=== PATIENT | female | born 1950 | race Caucasian/White ===

== ENCOUNTER → 2020-01-27 09:55 | Outpatient (CLI) | payer OTHER, SELFPAY ==
[2020-01-27 12:52] LABS: Coronavirus 19 IgG Antibody Negative (Negative); Coronavirus 19 IgM Antibody Negative (Negative)
== END ==
PROVIDERS: Visit Provider Internal Medicine Gastroenterology
DX: Z01.818 Encounter for other preprocedural examination (principal); Z13.810 Encounter for screening for upper gastrointestinal disorder
CPT/HCPCS: 36415; 86328

== ENCOUNTER 2020-01-29 08:54 | Day surgery (SDC) | payer OTHER, SELFPAY ==
[2020-01-23 14:33] VITALS: BMI 19.2
[2020-01-29] VITALS (7 sets, daily range): BP systolic 97–121; BP diastolic 53–72; PULSE 65–69; RESP 18; TEMP 36.4–36.6; O2SAT 96–99
--- NOTE | 2020-01-29 10:05 | HMH.ANESCL ---
[facility] [place] Anesthesia Checklist - Patient Identification Patient Identification: Arm Band, Verbal (Name & ) - Structural Data Admitted From: Home Planned Operative Procedure/s: EGD Consent for Planned Operative Procedure(s) Verified: Yes Verified Documents: Surgical Consent, History and Physical - NPO Status Verified Time NPO: 00:00 - Chart Verification Results Verified: None - Additional verifications Anesthesia Reactions: No - Airway Assessment C-Spine Mobility Assessed: Yes TMJ Mobility Assessed: Yes Dentition: Good Dentition - Neurological Assessment Level of Consciousness: Awake, Alert, Appropriate, Follows Commands Hx Seizures: No Numbness or tingling in extremities: No - Anesthesia Plan Anesthesia Risk discussed: Yes Anesthesia Plan: Verified ASA Class: II Anesthesia Type: MAC [facility] [place] History I have reviewed the patient's past medical history: Yes Medical History: Reports:: Anxiety, Depression, Gastroesophageal Reflux Disease(GERD), Valvular Heart Disease (MVP) Denies:: Cancer, Diabetes Mellitus Type 1, Diabetes Mellitus Type 2, Internal Pacemaker, MRSA *Have you ever received a pneumonia vaccine?: Yes *Have you received a flu vaccine this season?: Yes Other Medical History: Reports: Anemia Anesthesia experience/problems:: None Laterality Cases: Left: Arthroscopy Knee Other Surgeries: No: Pacemaker Amputation: No Fractures: No - *Social History Alcohol Intake: never Alcohol Intake Frequency:: 0-2 drinks per day Substance Use Type: denies use *Occupational Status:: retired Housing: house *Travel in the last 8 weeks: None Family Hx:: No significant family history
--- NOTE | 2020-01-29 10:31 | P.PCN_ITS ---
[facility] Procedure Note Procedure Note:: Upper Endoscopy Procedure Report: Esophagogastroduodenoscopy with cold biopsies and TTS balloon dilation Endoscopost: Walt Abreu II, MD Referring Physician: Octavio David MD Date of Procedure: January 29, 2020 Equipment: Olympus GIF 180 standard upper endoscope Sedation: MAC sedation Indications: Mrs. Razo is a 69-year-old female with chronic GERD. She was on Protonix since 2006 and had an upper endoscopy in [place]. At that time she was on twice daily dosing but eventually weaned down to once daily. More recently, she has had increased heartburn/pyrosis into her throat and has increased Protonix to twice daily once again. She still is having symptoms with globus sensation, frequent clearance of the throat and some hard swallowing. She reports burning in the mid upper retrosternal region. She has had no significant belching or bloating. She does get some nausea and early satiety. She has lost 30 pounds in the last 2 years and has reduced appetite. She has some dysphagia. She also reports some anxiety that may be playing some role. She has chronic constipation. She has been taking combined MiraLAX plus Metamucil daily. Procedure: Prior to the procedure, a history and physical exam was performed, and patient's medications and allergies were reviewed. The risks, benefits and alternatives of the sedation and procedure were discussed with the patient. All questions were answered and informed consent was obtained. The patient was brought to the procedure room. Patient identification and proposed procedure were verified by the physician and the nurse. The patient was placed in a left lateral decubitus position and the scope was passed under direct vision. Throughout the procedure, the patient's blood pressure, pulse, and oxygen saturations were monitored continuously. The upper GI endoscopy was accomplished without difficulty. The patient tolerated the procedure well. Findings: The scope was passed directly into the upper esophagus and advanced to the third portion of the duodenum. The post bulbar duodenum and duodenal bulb were normal with normal mucosa and conniventes. The scope was withdrawn through a normal duodenal bulb and pylorus into the stomach. There was bile reflux with linear reactive gastropathy of the antrum and body of the stomach. The remainder of the antrum, body and fundus of the stomach were grossly normal. Upon retroflexion there was no hiatal hernia. 2 biopsies were taken in the antrum and along the lesser curvature for histology to rule out gastritis and/or H pylori. The scope was then withdrawn into the esophagus. There was a serrated Z-line. There was no evidence of reflux esophagitis or Andrade's. Biopsies were taken at the Z-line. There were tertiary contractions and evidence of moderate esophageal dysmotility. The entire esophagus was dilated to 60 [place]/20 mm with a TTS hydrostatic balloon. There was some resistance at the cricopharyngeus. The remainder of the esophageal mucosa was normal. Impression: 1. Cricopharyngeal spasm status post dilation to 20 mm 2. Nonerosive GERD with moderate esophageal dysmotility 3. Bile reflux with linear reactive gastropathy Plan: I will follow-up the biopsies. The patient does have functional GERD/duodenal reflux with esophageal dyskinesia. I will discuss dietary measures and treatment options. I would recommend treatment of her obstipation.
== END 2020-01-29 11:34 | disposition home or self-care (01) ==
LOC: OUTP 08:58
PROVIDERS: PCP Family Medicine; Visit Provider Internal Medicine Gastroenterology
PROC: 0DJ08ZZ Inspection of Upper Intestinal Tract, Via Natural or Artificial Opening Endoscopic (ICD-10-PCS; CPT 43235; principal; 2020-01-29 10:00)
DX: J39.2 Other diseases of pharynx (principal); K21.9 Gastro-esophageal reflux disease without esophagitis; K22.2 Esophageal obstruction; K22.4 Dyskinesia of esophagus; K31.9 Disease of stomach and duodenum, unspecified; I34.1 Nonrheumatic mitral (valve) prolapse; F41.9 Anxiety disorder, unspecified; F32.9 Major depressive disorder, single episode, unspecified; D64.9 Anemia, unspecified
CPT/HCPCS: 43239; 43249; C1726

== ENCOUNTER → 2020-03-02 12:15 | Outpatient (CLI) | payer OTHER, SELFPAY ==
[2020-03-02 14:13] LABS: Coronavirus 19 IgG Antibody Negative (Negative); Coronavirus 19 IgM Antibody Negative (Negative)
== END ==
PROVIDERS: Visit Provider Internal Medicine Gastroenterology
DX: Z01.818 Encounter for other preprocedural examination (principal); Z03.818 Encounter for observation for suspected exposure to other biological agents ruled out; Z12.11 Encounter for screening for malignant neoplasm of colon
CPT/HCPCS: 36415; 86328

== ENCOUNTER 2020-03-04 10:25 | Day surgery (SDC) | payer OTHER, SELFPAY ==
[2020-02-28 09:36] VITALS: BMI 19.5
[2020-03-04 11:08] VITALS: BP 135/72; PULSE 81; RESP 18; TEMP 36.4; O2SAT 98
--- NOTE | 2020-03-04 11:37 | P.PN_ITS ---
[facility] Anesthesia Checklist - Patient Identification Patient Identification: Arm Band, Verbal (Name & ) - Structural Data Admitted From: Home Planned Operative Procedure/s: Colonoscopy Consent for Planned Operative Procedure(s) Verified: Yes Verified Documents: Surgical Consent, History and Physical - NPO Status Verified Time NPO: 00:00 - Chart Verification Results Verified: None - Additional verifications Anesthesia Reactions: No - Airway Assessment C-Spine Mobility Assessed: Yes TMJ Mobility Assessed: Yes Dentition: Good Dentition - Neurological Assessment Level of Consciousness: Awake, Alert, Appropriate, Follows Commands Hx Seizures: No Numbness or tingling in extremities: No - Anesthesia Plan Anesthesia Risk discussed: Yes Anesthesia Plan: Verified ASA Class: III Anesthesia Type: MAC [facility] History Medical History: Reports:: Anxiety, Depression, Gastroesophageal Reflux Disease(GERD), Valvular Heart Disease (MVP) Denies:: Cancer, Diabetes Mellitus Type 1, Diabetes Mellitus Type 2, Internal Pacemaker, MRSA, Seizures *Have you ever received a pneumonia vaccine?: No *Have you received a flu vaccine this season?: Yes Other Medical History: Reports: Anemia Comment:: Chronic back pain Anesthesia experience/problems:: None Laterality Cases: Left: Arthroscopy Knee Other Surgeries: No: Pacemaker Amputation: No Fractures: No Comment: Breast bx, cervical ablation - *Social History Last grade of school completed: Advanced degree Smoking Status: Never smoker Alcohol Intake: current Alcohol Intake Frequency:: 0-2 drinks per day Substance Use Type: denies use *Occupational Status:: retired Housing: house Household Members: spouse *Travel in the last 8 weeks: None - Psychiatric History Pschychiatric History:: Reports:: Anxiety, Depression Family Hx:: No significant family history
[2020-03-04 12:13] VITALS: O2SAT 97
--- NOTE | 2020-03-04 12:37 | HMH.PROC ---
[facility] Procedure Note Procedure Note:: Colonoscopy Procedure Report: Colonoscopy with cold snare polypectomy Endoscopist: Walt Abreu II, MD Referring physician: Octavio David MD Date of Procedure: March 04, 2020 Equipment: Olympus 180 variable stiffness pediatric colonoscope Sedation: MAC sedation Indication: Mrs. Razo is a 70-year-old female who is here for screening colonoscopy. The patient was having heartburn with globus sensation and frequent clearance of the throat. She was getting some nausea, fullness and dysphagia. She also had chronic constipation. Her EGD on January 29, 2020 did show cricopharyngeal spasm and nonerosive GERD. I did dilate the esophagus and cricopharyngeus. She had bile reflux with linear reactive gastropathy. I did place her on a combined fiber bowel regimen (MiraLAX plus Konsyl). I also placed her on herbal Iberogast. Overall she is better with improved bowel function. She still gets some frequent clearance of the throat. She does state that her paternal grandmother had colon cancer. She reports no rectal bleeding, abdominal pain or weight loss. Her last colonoscopy was in 2014. Procedure: Prior to the procedure, a history and physical exam was performed, and patient's medications and allergies were reviewed. The risks, benefits and alternatives of the sedation and procedure were discussed with the patient. All questions were answered and informed consent was obtained. The patient was brought to the procedure room. Patient identification and proposed procedure were verified by the physician and the nurse. The patient was placed in a left lateral decubitus position and the scope was passed under direct vision. Throughout the procedure, the patient's blood pressure, pulse, and oxygen saturations were monitored continuously. The colonoscopy was accomplished without difficulty. The patient tolerated the procedure well. Findings: On digital rectal examination there was normal rectal tone. There were no external hemorrhoids. The colonoscope was introduced through the anal canal to the rectum and advanced to the cecum. The ileocecal valve and appendiceal orifice were identified. The scope was advanced a short distance into the ileum which appeared grossly normal. The scope was then withdrawn into the colon. The cecum and ascending colon were grossly normal. There was a 3 mm polyp in the transverse colon removed via cold snare polypectomy. There were scattered diverticuli throughout the descending and sigmoid colon (LEFT colon). The rectum itself was normal. Upon retroflexion within the rectum there were grade 1-2 internal hemorrhoids. The preparation was excellent throughout with Salters Preparation Score of 9. The cecal time was 12 minutes. Impression: 1. Diminutive transverse polyp 2. Left-sided diverticulosis 3. Grade 1-2 internal hemorrhoids Plan: I will follow up the polyp histology and recommend repeat surveillance colonoscopy again in 7 to 10 years. I would encourage continuation of the fiber bowel regimen (combined MiraLAX plus Konsyl).
[2020-03-04 12:40] VITALS: BP 84/48; PULSE 85; RESP 12; TEMP 36.5; O2SAT 94
[2020-03-04 12:50] VITALS: BP 90/52; PULSE 83; RESP 16; O2SAT 97
[2020-03-04 13:00] VITALS: BP 91/64; PULSE 64; RESP 16; O2SAT 98
[2020-03-04 13:10] VITALS: BP 104/64; PULSE 81; RESP 16; TEMP 36.5; O2SAT 98
== END 2020-03-04 13:17 | disposition home or self-care (01) ==
LOC: OUTP 10:29
PROVIDERS: PCP Family Medicine; Visit Provider Internal Medicine Gastroenterology
PROC: 0DJD8ZZ Inspection of Lower Intestinal Tract, Via Natural or Artificial Opening Endoscopic (ICD-10-PCS; CPT 45378; principal; 2020-03-04 11:30)
DX: Z12.11 Encounter for screening for malignant neoplasm of colon (principal); K63.5 Polyp of colon; K57.30 Diverticulosis of large intestine without perforation or abscess without bleeding; K64.0 First degree hemorrhoids; K21.9 Gastro-esophageal reflux disease without esophagitis; F41.9 Anxiety disorder, unspecified; F32.9 Major depressive disorder, single episode, unspecified; R00.2 Palpitations; Z79.899 Other long term (current) drug therapy; Z88.8 Allergy status to other drugs, medicaments and biological substances
CPT/HCPCS: 45385

== ENCOUNTER → 2020-07-24 11:24 | Outpatient (CLI) | payer MEDICARE, SELFPAY ==
--- NOTE | 2020-07-24 11:37 | XR_ITS ---
PROCEDURE: XR SHOULDER LT MIN 2V CLINICAL INDICATION: LT SHOULDER PAIN COMPARISON: No exams were available for comparison FINDINGS: No fracture or dislocation. Focal sclerotic density is noted in the left humeral head, may represent a bone island. No lytic or blastic change. Normal mineralization. Periarticular calcification is noted, raises the concern for calcific tendinosis. Visualized soft tissues and the left hemithorax is unremarkable. IMPRESSION: Minor periarticular calcification, raises the concern for calcific tendinosis. No acute fractures or dislocations. Dictated by: Ilsa Abbasi 07/24/2020 12:06 Ilsa Abbasi in [facility] 07/24/2020 12:06
--- NOTE | 2020-07-24 11:37 | XR_ITS ---
PROCEDURE: XR HIP RT 2-3V W/PELVIS CLINICAL INDICATION: RT HIP PAIN COMPARISON: No exams were available for comparison FINDINGS: Degenerative changes of the right hip joint with subchondral sclerosis, subchondral cystic changes and mild joint space loss. Heterotopic ossification noted at the greater trochanter. No acute fractures or dislocations. Bone density is normal. No significant soft tissue abnormality IMPRESSION: No acute abnormality. Degenerative changes as described above. Dictated by: Ilsa Abbasi 07/24/2020 12:07 Ilsa Abbasi in [facility] 07/24/2020 12:07
--- NOTE | 2020-07-24 11:37 | XR_ITS ---
PROCEDURE: XR SHOULDER RT MIN 2V CLINICAL INDICATION: RT SHOULDER PAIN COMPARISON: No exams were available for comparison FINDINGS: No fracture or dislocation. No lytic or blastic change. There is normal mineralization. The joint spaces are well-preserved. No significant degenerative/arthritic changes. No erosive changes evident. Other findings:Visualized right hemithorax is unremarkable. No significant soft tissue swelling is noted. IMPRESSION: No acute findings. Dictated by: Ilsa Abbasi 07/24/2020 14:18 Ilsa Abbasi in [facility] 07/24/2020 14:18
--- NOTE | 2020-07-24 11:37 | XR_ITS ---
PROCEDURE: XR HIP LT 2-3V W/PELVIS CLINICAL INDICATION: LT HIP PAIN COMPARISON: No exams were available for comparison FINDINGS: [id number] degenerative changes of the bilateral hip joints with subchondral sclerosis noted. Minor heterotopic ossification adjacent to the left hip joint. No acute fractures or dislocations. Bone density is normal. Minor degenerative changes of bilateral sacroiliac joints are noted. No significant soft tissue abnormality. IMPRESSION: Degenerative changes of the hip joints. No acute fractures or dislocations. Dictated by: Ilsa Abbasi 07/24/2020 14:19 lIsa Abbasi in [place] 07/24/2020 14:19
== END ==
PROVIDERS: PCP Family Medicine; Visit Provider Physician Assistant Medical
DX: M25.512 Pain in left shoulder (principal)
CPT/HCPCS: 73030; 73502

== ENCOUNTER 2023-07-26 14:01 | Outpatient (CLI) | payer MEDICARE, SELFPAY ==
[2023-07-26] MEDS: DENOSUMAB 60 MG/ML SYRINGE SQ (14:15)
[2023-07-26 14:30] VITALS: BP 148/71; PULSE 72; RESP 18; O2SAT 99
== END 2023-07-26 23:59 | disposition home or self-care (01) ==
LOC: INF 14:02
PROVIDERS: PCP Family Medicine; Visit Provider Family Medicine
DX: M81.0 Age-related osteoporosis without current pathological fracture (principal)
CPT/HCPCS: 96372; J0897